=== PATIENT | male | born 1980 | race Caucasian/White ===

== ENCOUNTER 2018-05-06 13:59 | Emergency (ER) | payer MEDICAID, OTHER ==
[~2018-05-06] VITALS: Ht 182.9 cm; Wt 104.6 kg
[2018-05-06 14:34] LABS: BASOPHILS # (AUTO) 0.05 x10^3/uL (0-0.1); BASOPHILS % (AUTO) 0 % (0-1); EOSINOPHILS # (AUTO) 0.11 x10^3/uL (0-0.4); EOSINOPHILS % (AUTO) 1 % (1-7); LYMPHOCYTES % (AUTO) 28 % (22-44); MD NO; MEAN CORPUSCULAR HEMOGLOBIN 28.1 pg (27.5-34.5); MEAN CORPUSCULAR HGB CONC 34.4 g/dL (33.2-36.2); MEAN CORPUSCULAR VOLUME 81.9 fL (81-97); MEAN PLATELET VOLUME 8.1 fL (7.4-10.4); MONOCYTES # (AUTO) 0.84 x10^3/uL (0.2-0.8); MONOCYTES % (AUTO) 8 % (2-9); NEUTROPHILS # (AUTO) 7.09 x10^3/uL (1.8-6.8); NEUTROPHILS % (AUTO) 63 % (42-75); PLATELET COUNT 462 x10^3/uL (130-400); RED BLOOD COUNT 5.44 x10^6/uL (4.38-5.82); RED CELL DISTRIBUTION WIDTH 13.6 % (9.4-14.8)
[2018-05-06 14:47] LABS: ALANINE AMINOTRANSFERASE 69 U/L (12-78); ALBUMIN 3.7 g/dL (3.4-5.0); ANION GAP 8 mmol/L (5-15); CALCIUM 8.9 mg/dL (8.5-10.1); CHLORIDE 104 mmol/L (98-107); CREATININE 1.28 mg/dL (0.7-1.3)
[2018-05-06 14:51] LABS: ALKALINE PHOSPHATASE 124 U/L (45-117); BILIRUBIN,TOTAL 0.4 mg/dL (0.2-1.0); TOTAL PROTEIN 8.4 g/dL (6.4-8.2); TROPONIN I < 0.015 ng/mL (0.000-0.045)
[2018-05-06] MEDS ORDERED: IBUPROFEN 200 MG TABLET PO ONE (15:30)
[2018-05-06] MEDS ORDERED: IBUPROFEN 200 MG TABLET ONE (15:40)
[2018-05-06 15:58] LABS: MICROSCOPIC NOT IND
[2018-05-06 15:59] LABS: CULTURE INDICATED? NO
[2018-05-06 16:29] VITALS: BP 132/88
== END 2018-05-06 16:31 | disposition home or self-care (01) ==
LOC: ED 15:00
DX: R07.89 Other chest pain (principal); M54.6 Pain in thoracic spine
CPT/HCPCS: 36415; 71045; 80053; 81003; 84484; 85025; 93005; 99285

== ENCOUNTER 2019-08-08 00:28 | Emergency (ER) | payer SELFPAY ==
[~2019-08-08] VITALS: Ht 182.9 cm; Wt 98.1 kg
--- NOTE | 2019-08-08 00:39 | NUR ---
PT TO ROOM
--- NOTE | 2019-08-08 00:44 | NUR ---
PT C/O OF DENTAL PAIN ON LAST MOLAR ON BOTTOM RIGHT SIDE. NO FACIAL SWELLING PRESENT, DENIES JAW PAIN OR RADIATING PAIN. DENIES ANY OTHER C/O AT THIS TIME. PT REPORTS TAKING MORTIN AND TYLENOL AROUND 7PM YESTERDAY AND VICODEN AROUND 10PM. PT PLACED ON MONITORING, CALL LIGHT WITHIN REACH, SAFETY MEASURES IN PLACE.
--- NOTE | 2019-08-08 00:51 | NUR ---
PT REPORTS INCREASED PAIN WITH HOT OR COLD, NO PAIN WITH CHEWING, DENIES DIFFICULTY OR DISCOMFORT WHEN SWALLOWING.
[2019-08-08] MEDS ORDERED: HYDROcodone/APAP 5/325 TABLET PO ONE (01:00)
[2019-08-08] MEDS ORDERED: BUPIVACAINE 0.25% ONE (01:03)
[2019-08-08] MEDS ORDERED: HYDROcodone/APAP 5/325 TABLET ONE (01:13)
[2019-08-08 01:18] VITALS: BP 112/60
== END 2019-08-08 01:28 | disposition home or self-care (01) ==
LOC: ED 01:05
DX: K08.89 Other specified disorders of teeth and supporting structures (principal)
CPT/HCPCS: 64400; 99284